=== PATIENT | female | born 1980 | race Caucasian/White ===

== ENCOUNTER 2022-08-18 07:03 | Outpatient (OUT) | payer OTHER, SELFPAY ==
[2022-08-18 07:28] LABS: Basophils Absolute Auto 0.1 10^3/uL (0.0-0.1); Basophils Percent Auto 0.9 % (0.2-2.0); Eosinophils Absolute Auto 0.2 10^3/uL (0.0-0.7); Hematocrit 37.6 % (36.0-48.0); Hemoglobin 12.5 g/dL (12.0-16.0); Immature Granulocytes Abs Auto 0.01 10^3/uL (0.00-0.03); Immature Granulocytes Pct Auto 0.2 % (0.0-0.5); Lymphocytes Percent Auto 38.4 % (20.5-60.0); Mean Corpuscular HGB Conc 33.2 g/dL (29.9-35.2); Mean Corpuscular Hemoglobin 29.8 pg (26.7-34.0); Mean Corpuscular Volume 89.7 fL (81.0-99.0); Mean Platelet Volume 10.9 fL (9.5-13.5); Monocytes Absolute Auto 0.4 10^3/uL (0.3-0.8); Monocytes Percent Auto 7.6 % (1.7-12.0); Neutrophils Absolute Auto 2.6 10^3/uL (1.4-6.5); Neutrophils Percent Auto 48.9 % (43.0-75.0); Platelet Count 241 10^3/uL (150-450); Red Blood Count 4.19 10^6/uL (4.20-5.40); White Blood Count 5.3 10^3/uL (4.0-11.0)
[2022-08-18 07:44] LABS: Estimated Average Glucose 103 mg/dL; Glycohemoglobin A1C 5.2 % (4.5-6.2)
[2022-08-18 08:27] LABS: Alanine Aminotransferase 34 U/L (14-59); Albumin Globulin Ratio 1.1; Albumin Level 3.6 g/dL (3.4-5.0); Alkaline Phosphatase 48 U/L (46-116); Anion Gap 13.9; Aspartate Amino Transferase 18 U/L (15-37); BUN Creatinine Ratio 10.1; Bilirubin Total 0.3 mg/dL (0.2-1.0); Calcium 8.5 mg/dL (8.5-10.1); Carbon Dioxide 25.1 mmol/L (21.0-32.0); Chloride 105 mmol/L (98-107); Estimated GFR (African America >60 (>=60); Estimated GFR (Non-African Ame >60 (>=60); Globulin 3.4 g/dL; Glucose 113 mg/dL (74-106); Sodium 140 mmol/L (136-145)
[2022-08-18 08:37] LABS: Chol HDL Ratio 2.7; Cholesterol 124 mg/dL (<=200); Free T3 2.42 pg/mL (2.18-3.98); HDL Cholesterol 46 mg/dL (40-60); Thyroid Stimulating Hormone 2.059 uIU/mL (0.358-3.740); Triglycerides 70 mg/dL (<=150)
== END 2022-08-18 07:04 ==
LOC: LAB 07:03
PROVIDERS: PCP Family Medicine; Visit Provider Family Medicine
DX: R00.1 Bradycardia, unspecified (principal)
CPT/HCPCS: 36415; 80053; 80061; 83036; 83540; 84436; 84443; 84481; 85025

== ENCOUNTER 2022-08-19 09:30 | Outpatient (OUT) | payer OTHER, SELFPAY ==
--- NOTE | 2022-08-19 09:30 | CA_ITS ---
[facility] Test Date: 2022-09-15 Pat Name: SHARON SANTOS Department: Room: - Gender: Female [employer]: : 1980 Requested By: SAGE GONZALEZ Order Number: [id number] Reading MD: BENSON MARROQUIN Interpretive Statements Predominant rhythm is sinus with average rate of 73 bpm Tachycardia - max rate of 138 bpm - longest episode of 5min 27sec with rates 108-119 bpm Bradycardia - min rate of 46 bpm - longest episode of 21min 39sec with rates 50-56 bpm Ventricular ectopy - none Patient triggered events: 10 - associated with symptoms of dyspnea, lightheadedness, dizzy, fatigue - associated with rates of NSR Impression: Predominant rhythm is sinus with average rate of 73 bpm Fastest rate of 138 and slowest rate of 46 bpm No ventricular ectopy No pauses or blocks Electronically Signed On 09-19-2022 10:08:05 EDT by BENSON MARROQUIN
== END 2022-08-19 09:31 ==
LOC: CARD 09:31
PROVIDERS: PCP Family Medicine; Visit Provider Family Medicine
DX: R53.83 Other fatigue (principal)
CPT/HCPCS: 93246

== ENCOUNTER 2022-09-16 20:41 | Outpatient (OUT) | payer OTHER, SELFPAY | END 2022-09-16 20:42 | disposition home or self-care (01) | LOC: SLEEP 20:42 | PROVIDERS: PCP Family Medicine; Visit Provider Family Medicine | DX: G47.33 Obstructive sleep apnea (adult) (pediatric) (principal) | CPT/HCPCS: 95810 ==

== ENCOUNTER 2022-10-29 08:06 | Outpatient (OUT) | payer OTHER, SELFPAY ==
[2022-10-29 09:14] LABS: Alanine Aminotransferase 41 U/L (14-59); Albumin Level 4.2 g/dL (3.4-5.0); Alkaline Phosphatase 58 U/L (46-116); Anion Gap 13.6; Aspartate Amino Transferase 25 U/L (15-37); BUN Creatinine Ratio 11.2; Bilirubin Total 0.3 mg/dL (0.2-1.0); Carbon Dioxide 25.5 mmol/L (21.0-32.0); Chloride 104 mmol/L (98-107); Estimated GFR (African America >60 (>=60); Estimated GFR (Non-African Ame >60 (>=60); Globulin 4.1 g/dL; Glucose 95 mg/dL (74-106); Potassium 4.1 mmol/L (3.5-5.1); Sodium 139 mmol/L (136-145); Total Protein 8.3 g/dL (6.4-8.2)
[2022-10-29 09:54] LABS: Estimated Average Glucose 114 mg/dL; Glycohemoglobin A1C 5.6 % (4.5-6.2)
[2022-10-30 11:09] LABS: Insulin 23.4 uIU/mL (2.6-24.9)
== END 2022-10-29 08:07 | disposition home or self-care (01) ==
LOC: LAB 08:07
PROVIDERS: PCP Family Medicine; Visit Provider Family Medicine
DX: R73.9 Hyperglycemia, unspecified (principal); R73.09 Other abnormal glucose
CPT/HCPCS: 36415; 80053; 83036; 83525

== ENCOUNTER 2023-05-04 12:55 | Outpatient (OUT) | payer OTHER, SELFPAY ==
--- NOTE | 2023-05-04 12:59 | CT_ITS ---
The [address] [address] Patient Name: SHARON SANTOS MRN: [id number] date: 1980 Sex: F Assigned Patient Location: CT Current Patient Location: Accession/Order Number: [id number] Exam Date: 05/04/2023 14:17 Report Date: 05/05/2023 07:10 At the request of: SAGE GONZALEZ Procedure: CT abdomen pelvis w con EXAM: CT abdomen pelvis w con HISTORY: Abdominal Wall Hernia K43.9 COMPARISON: CT abdomen and pelvis 11/23/2019 . TECHNIQUE: Following intravenous administration of 90 cc of Omnipaque 300, axial soft tissue windows of the abdomen and pelvis were performed with coronal and sagittal reformats. CT dose reduction technique was used including Automated Exposure Control. Findings: ABDOMEN: Small region of focal fatty infiltration within segment 4 adjacent to the falciform ligament. There are couple scattered hepatic low-attenuation lesions, too small to characterize. The gallbladder is surgically absent. Spleen, pancreas, adrenal glands and kidneys are unremarkable. The visualized portions of the bilateral ureters are nondilated. The bowel is unremarkable without evidence of wall thickening or obstruction. The appendix is nondilated. The aorta is normal caliber. No enlarged abdominal lymph nodes or free abdominal fluid. Tiny fat-containing umbilicus hernia. Pelvis: Unremarkable bladder. The uterus is present and unremarkable within the limits of CT. No enlarged pelvic lymph nodes. Small amount of free pelvic fluid is likely physiologic. No aggressive sclerotic or lytic osseous lesions. Mild degenerative disc disease at L5-S1. CT/CT abdomen pelvis w con IMPRESSION: 1. No evidence of ventral hernia, as clinically queried 2. Small amount of free pelvic fluid is likely physiologic. Electronically authenticated by: NAM UNGER Date: 05/05/2023 07:10
== END 2023-05-04 12:56 | disposition home or self-care (01) ==
LOC: CT 12:55
PROVIDERS: PCP Family Medicine; Visit Provider Family Medicine
DX: K43.9 Ventral hernia without obstruction or gangrene (principal)
CPT/HCPCS: 74177; Q9967